=== PATIENT | male | born 1960 | race Two or more races ===

== ENCOUNTER 2017-01-03 07:13 | Emergency (ER) | payer OTHER ==
[~2017-01-03] VITALS: Ht 185.4 cm; Wt 99.8 kg
[2017-01-03 07:33] VITALS: BP 142/82
[2017-01-03] MEDS ORDERED: KETOROLAC TROMETH 60MG/2ML VIAL IM ONE (07:45)
== END 2017-01-03 08:31 | disposition home or self-care (01) ==
LOC: ER 07:13
DX: S29.011A Strain of muscle and tendon of front wall of thorax, initial encounter (principal); S20.219A Contusion of unspecified front wall of thorax, initial encounter; V49.40XA Driver injured in collision with unspecified motor vehicles in traffic accident, initial encounter; Y93.89 Activity, other specified; Y99.8 Other external cause status; Y92.89 Other specified places as the place of occurrence of the external cause
CPT/HCPCS: 71020; 96372; 99284; J1885